=== PATIENT | female | born 1970 | race Caucasian/White ===

== ENCOUNTER 2018-10-03 05:25 | Day surgery (SDC) | payer OTHER ==
[2018-10-03] MEDS ORDERED: PERCOCET 5-3251 EACH PO (08:27)
[2018-10-03] MEDS ORDERED: RECTICARE30 GM TOP (08:27)
== END 2018-10-03 12:21 | disposition home or self-care (01) ==
LOC: CIR.AMB 05:25
DX: D12.9 Benign neoplasm of anus and anal canal (principal); A63.0 Anogenital (venereal) warts